=== PATIENT | male | born 1965 | race African-American/Black ===

== ENCOUNTER 2023-06-17 19:52 | Emergency (ER) | payer OTHER, SELFPAY ==
[2023-06-17 19:54] VITALS: BP 130/88; PULSE 90
[2023-06-17 20:00] VITALS: BP 123/103; PULSE 105; RESP 16; O2SAT 98; BMI 29.3
--- NOTE | 2023-06-17 20:31 | ED_ITS ---
HPI - General Adult General Chief complaint: Overdose Stated complaint: OVERDOSE + NARCAN Time Seen by Provider: 06/17/23 20:06 Source: patient, EMS, RN notes reviewed and old records reviewed Mode of arrival: EMS Limitations: no limitations History of Present Illness HPI narrative: 57-year-old male presents for evaluation of a reported overdose Patient was apparently unresponsive and was given 4 mg of Narcan via EMS with success. The patient denies using any drugs. He states that he took an extra dose of his ?Ambien. ? Patient is demanding to leave, he is ambulating around his room He denies any complaints Review of Systems Constitutional: Constitutional: Denies chills, Denies fever(s) and Denies hea dache(s) ENT: Denies headache(s) Cardiovascular: Cardiovascular: Denies chest pain and Denies dyspnea Respiratory: Respiratory: Denies cough and Denies dyspnea Gastrointestinal: Gastrointestinal: Denies abdominal pain Musculoskeletal: Musculoskeletal: Denies back pain Neurologic: Denies headache(s) PMFSH Social History Social History Advance Directives: No Advance Directives Information Provided: No Physical Exam ED Vital Signs: Vital Signs - 24 hr 06/17/23 20:00 Pulse Rate 105 H Respiratory Rate 16 Blood Pressure 123/103 H Pulse Oximetry 98 Oxygen Delivery Method Room Air BMI result Body Mass Index 29.3 Const General: healthy appearing, comfortable, no acute distress, alert and awake Nutritional Appearance: well nourished Orientation/consciousness: patient oriented x3 HENMT Head: Yes normocephalic and Yes atraumatic Eyes Eyelids: Yes eyelids normal Conjunctivae: conjunctivae normal Sclerae: sclerae normal Corneas: corneas normal Pupils: Equal, round and reactive pupils present EOM: EOMs intact bilaterally Neck Neck: Yes full ROM Resp Effort & Inspection: normal respiratory effort, able to speak in complete sentences and not labored Skin General skin exam: no rashes or lesions noted and elasticity normal Neuro General: patient oriented x3 Cranial nerves: Yes Equal, round and reactive pupils present and Yes Bilaterally intact EOM present Cognition (Neuro): normal cognition Extrem Other: Moving all extremities well without any obvious deformities Medical Decision Making Medical Decision Making MDM Narrative: Him patient is awake, alert and oriented. He adamantly denies using any illicit substances. I explained to the patient that without completing workup we could not tell him why he was found unresponsive. The patient states that he does not want any workup because ?my vital signs are fine and I feel fine so I am leaving. ? He left before signing against medical advice paperwork but I was able to explain to him the risks of leaving against medical advice including becoming unresponsive again and ultimately need to . I explained to the patient that pre-hospital it was reported that he responded to Narcan so it is likely there opiates in his system even if he did not knowingly ingest any. Patient still wishes to leave against medical advice Differential Diagnosis Differential Diagnoses: The differential diagnosis associated with the presentation includes Overdose Substance abuse Medication noncompliance Unresponsiveness Discharge Plan Discharge Clinical Impression: Drug overdose Patient Disposition: Left Against Medical Advice Interventions: ED Discharge Assessment Last Done: 06/17/23 20:55 Discharge Date/Time: 06/17/23 20:56
--- NOTE | 2023-06-17 20:54 | PC.NURSE ---
pt left ama per dr griffin. pt was seen leaving to the waiting room and outside where he is waiting for a ride. pt refuses to come back in and states he was told to leave which was not the case per Alyx lopez. pt is ama
--- NOTE | 2023-06-17 21:29 | PC.NURSE ---
pt evaluated by PA, left AMA per Dr. Webber
== END 2023-06-17 20:56 | disposition left against medical advice (07) ==
PROVIDERS: Emergency Provider Emergency Medicine
DX: T40.2X1A Poisoning by other opioids, accidental (unintentional), initial encounter (principal); Y92.9 Unspecified place or not applicable; Z71.51 Drug abuse counseling and surveillance of drug abuser
CPT/HCPCS: 99283